=== PATIENT | female | born 1955 | race Caucasian/White ===

== ENCOUNTER 2020-01-06 09:11 | Outpatient (CLI) | payer MEDICARE, SELFPAY ==
--- NOTE | ~2020-01-06 | MM_ITS ---
EXAMINATION: MM screening leobardo BI w radha HISTORY: Screening mammogram TECHNIQUE: Craniocaudal and mediolateral oblique 3-D tomosynthesis images were obtained and synthetic 2-D images were generated. CAD analysis was submitted and interpreted. COMPARISON: 09/25/2018, 04/19/2017, 03/31/2016 bilateral digital screening mammogram examinations 05/09/2017 diagnostic left digital mammogram BREAST PARENCHYMAL COMPOSITION: The breasts are heterogeneously dense, which may obscure small masses . FINDINGS: Small bilateral breast masses are suggested. Bilateral diagnostic mammography and ultrasoun d examination are recommended. IMPRESSION: 1. Possible bilateral masses. 2. Bilateral diagnostic mammogram and breast ultrasound examination are recommended. BI-RADS Category 0: Incomplete: Needs additional imaging evaluation. Reviewed, dictated and finalized at location A. IMPRESSION: 1. Possible bilateral masses. 2. Bilateral diagnostic mammogram and breast ultrasound examination are recomme nded. BI-RADS Category 0: Incomplete: Needs additional imaging evaluation.
== END 2020-01-06 09:12 | disposition home or self-care (01) ==
LOC: ANHIMG 09:15
PROVIDERS: PCP Student in an Organized Health Care Education/Training Program; Visit Provider Student in an Organized Health Care Education/Training Program
DX: Z12.31 Encounter for screening mammogram for malignant neoplasm of breast (principal); R92.8 Other abnormal and inconclusive findings on diagnostic imaging of breast
CPT/HCPCS: 77063; 77067

== ENCOUNTER 2020-01-14 11:21 | Outpatient (CLI) | payer MEDICARE, SELFPAY ==
--- NOTE | ~2020-01-14 | MMUS_ITS ---
EXAMINATION: MM diagnostic mammo BI, US breast BI limited HISTORY: Follow-up breast asymmetries TECHNIQUE: Additional 3-D tomosynthesis images of the breasts were performed and synthetic 2-D images were generated. CAD analysis was submitted and interpreted. High resolution bilateral breast ultraso und was performed. COMPARISON: 01/06/2020 FINDINGS: MAMMOGRAPHIC FINDINGS: Breast composed of scattered areas of fibroglandular density. There is a low-density 4 mm nodule medi al aspect of the right breast on CC view. This is not confirmed on MLO or mediolateral views. There i s a 4 mm low-density mass medial aspect of the left breast posterior depth: Not well seen on MLO or m ediolateral views. ULTRASOUND: Right breast ultrasound: At 3:00 near the nipple there is a 3 mm cyst corresponding to the mammographic finding. Left breast ultrasound: At 6:00 there is a 4 mm cyst which may correspond to the mammographic finding. At 9:00, 2 cm from the nipple there is an oval hypoechoic mass without internal vascularity or posterior features measuring 12 x 6 x 3 mm, likely benign. IMPRESSION: 1. Probable benign left breast mass at 9:00, 2 cm from the nipple. 2. Recommend 6 month follow-up diagnostic left mammogram and ultrasound BI-RADS category 3, probably benign findings. Reviewed, dictated and finalized at location A. IMPRESSION: 1. Probable benign left breast mass at 9:00, 2 cm from the nipple. 2. Recommend 6 month follow-up diagnostic left mammogram and ultrasound BI-RADS category 3, probably benign findings.
== END 2020-01-14 11:22 | disposition home or self-care (01) ==
PROVIDERS: PCP Student in an Organized Health Care Education/Training Program; Visit Provider Student in an Organized Health Care Education/Training Program
DX: R92.2 Inconclusive mammogram (principal); R92.8 Other abnormal and inconclusive findings on diagnostic imaging of breast
CPT/HCPCS: 76642; 77066

== ENCOUNTER 2020-03-30 10:09 | Emergency (ER) | payer OTHER, MEDICARE, SELFPAY ==
--- NOTE | ~2020-03-30 | CT_ITS ---
EXAMINATION: CT brain wo con, CT facial bones wo con DATE: 03/30/2020 11:26 INDICATION: Fall presenting with head/facial injury and nasal pain. TECHNIQUE: 1. Computed tomography (CT) of the head was performed without intravenous contrast. Sagittal and kait nal reconstructions were obtained. The mA was adjusted according to patient size. Iterative reconstru ction technique was employed. The dose-length product was 605 mGy-cm. 2. CT of the facial bones and maxillofacial region was performed without intravenous contrast. Sagitt al and coronal reconstructions were obtained. Automated exposure control and iterative reconstruction technique were employed. The dose-length product was 410 mGy-cm. COMPARISON: None. FINDINGS: Head CT: No calvarial fracture. Acute intracranial hemorrhage, acute infarction or abnormal extra axial fluid collection. There is minimal scattered white matter hypoattenuation consistent with chronic small ves yenni ischemic disease. Ventricles are normal and symmetric. No mass/mass effect. Maxillofacial CT: Nondisplaced coronally oriented fracture involving the left and right nasal bones which is best appre ciated on the sagittal reconstructed images. Minimal overlying soft tissue swelling. No other maxillo facial fractures identified. Specifically the dawkins of the orbits and paranasal sinuses, the pterygoi d plates, zygomatic arches and mandible are intact. Normal alignment at the bilateral temporomandibul ar joints with minimal osteoarthritis. The orbits are normal. Mild mucosal thickening the posterior r ight ethmoid air cells. Mastoid air cells and middle ear cavities are clear. IMPRESSION: 1. Nondisplaced left and right nasal bone fractures. 2. No calvarial fracture or acute intracranial process. 3. Minimal scattered white matter hypoattenuation consistent with chronic small vessel ischemic disea se. Reviewed, dictated and finalized at location A. IMPRESSION: 1. Nondisplaced left and right nasal bone fractures. 2. No calvarial fracture or acute intracranial process. 3. Minimal scattered white matter hypoattenuation consistent with chronic small vessel ischemic disease.
--- NOTE | ~2020-03-30 | XR_ITS ---
EXAMINATION: XR wrist LT min 3V DATE: 03/30/2020 11:37 INDICATION: Left wrist pain post fall TECHNIQUE: Posteroanterior, ulnar deviation, oblique, and lateral views of the left wrist were obtain ed. COMPARISON: None FINDINGS: Diffuse osteopenia which mildly decreases sensitivity for nondisplaced fracture. Bone alignment is no rmal. No fracture. Polyarticular osteoarthritis, moderate severity at the triscaphe and first carpal metacarpal joints and mild at the wrist, midcarpal and several of the visualized metacarpophalangeal and interphalangeal joints. Tiny corticated loose body at the dorsal/radial aspect of the first carpo metacarpal joint. IMPRESSION: 1. No acute osseous abnormality. 2. Mild to moderate polyarticular osteoarthritis most prominent at the radial aspect of the carpus. 3. Diffuse osteopenia Reviewed, dictated and finalized at location A. IMPRESSION: 1. No acute osseous abnormality. 2. Mild to moderate polyarticular osteoarthritis most prominent at the radial a spect of the carpus. 3. Diffuse osteopenia
--- NOTE | ~2020-03-30 | XR_ITS ---
XR shoulder RT min 2V DATE: 03/30/2020 11:37 INDICATION: Right shoulder and proximal upper arm pain following a fall. TECHNIQUE: 4 views COMPARISON: None FINDINGS: No fracture or dislocation, periosteal reaction or bone destruction or abnormal soft tissue calcification is detected. Degenerative spurring and levoscoliosis of the thoracic spine. IMPRESSION: No significant abnormality of the right shoulder Reviewed, dictated and finalized at location A.
[2020-03-30 10:19] VITALS: BP 165/130; PULSE 89; RESP 18; TEMP 36.4; O2SAT 98
--- NOTE | 2020-03-30 11:09 | ED.FALL ---
HPI - Fall General Chief Complaint: Fall Stated Complaint: FALL/FACIAL INJURY Time Seen by Provider: 03/30/20 10:55 Source: patient Mode of arrival: EMS Limitations: no limitations History of Present Illness HPI Narrative: This is a 65-year-old female that presents the emergency department via EMS for a fall today at work. Reports she tripped over a mat and fell forward. Reports she hit her face on the floor. Reports a bloody nose and nasal pain. Also reports left wrist and right shoulder pain. Denies prodromal symptoms, loss of consciousness, vision changes, vomiting, numbness or weakness. Related Data Home Medications Medication Instructions Recorded Confirmed calcium carbonate [Calcium 600] 600 03/30/20 citalopram 20 mg PO DAILY 03/30/20 03/30/20 lisinopril 10 mg PO DAILY 03/30/20 03/30/20 vit D3-vit [id number] 5,000 03/30/20 Allergies Allergy/AdvReac Type Severity Reaction Status Date / Time meperidine Allergy Unknown Unknown Verified 03/30/20 10:27 morphine Allergy Unknown Unknown Verified 03/30/20 10:27 Review of Systems Review of Systems: Narrative: CONSTITUTIONAL: Denies fever EYES: Denies visual changes GASTROINTESTINAL: Denies vomiting MUSCULOSKELETAL: Reports joint pain, and myalgia. NEUROLOGIC: Denies headache, numbness, or weakness. All systems reviewed & are unremarkable except as noted in HPI and below PMFSH Past Medical History Medical History (Updated 03/30/20 @ 12:00 by Britany Schaefer PA-C) History of depression History of diabetes mellitus History of hypertension Family History Family History (Updated 01/16/18 @ 11:37 by DOCTOR UNKNOWN) Grandparent Carcinoma of colon Sibling Family history of malignant neoplasm of breast in first degree relative Mother Family history of malignant neoplasm Social History Social History Smoking status: Never smoker Alcohol intake: never Gender identity (if verbalized by the patient): Female Exam Narrative: Exam Narrative: GENERAL: Well-appearing, well-nourished, and in no acute distress. HEAD: Normocephalic, atraumatic. EYES: PERRLA and EOMI. ENT: Nares no rhinorrhea or active epistaxis. Dried blood in the left nares. Mucous membranes moist. Oropharynx without tonsillar hypertrophy exudate or other lesions. Bilateral TMs pearly dean non-bulging NECK: Supple. No adenopathy or masses. No midline cervical spine tenderness CHEST: Clear to auscultation. No respiratory distress. No wheezes rales or rhonchi HEART: Regular rate and rhythm. No murmur heard. Normal peripheral pulses. BACK: No midline thoracic or lumbar spine tenderness EXTREMITIES: Normal range of motion. No edema or obvious deformity. Normal sensation SKIN: Warm, dry, no rash. NEURO: No focal deficits. Alert and oriented x3. Cranial nerves II through XII grossly intact PSYCH: Normal mood and affect Course Vital Signs Vital signs: Vital Signs Temperature 97.6 F 03/30/20 10:19 Pulse Rate 89 03/30/20 10:19 Respiratory Rate 18 03/30/20 10:19 Blood Pressure 165/130 H 03/30/20 10:19 Pulse Oximetry 98 03/30/20 10:19 Temperature 97.6 F 03/30/20 10:19 Pulse Rate 89 03/30/20 10:19 Respiratory Rate 18 03/30/20 10:19 Blood Pressure 165/130 H 03/30/20 10:19 Pulse Oximetry 98 03/30/20 10:19 MDM - Fall MDM Narrative Medical decision making narrative: Patient presents to the emergency department after a fall today with nasal pain, left wrist, and right shoulder pain. Patient is neurologically intact. CT scan of the brain is without acute findings. CT of the facial bones shows nondisplaced left and right nasal bone fractures. Right shoulder x-rays without acute findings. Left wrist x-rays without acute findings. Patient updated on case findings. Was instructed on care of nasal bone fracture. Will be given ENT for follow-up. Patient declined prescription for pain medication. Patient is stable and felt appropriate further outpa
== END 2020-03-30 12:47 | disposition home or self-care (01) ==
PROVIDERS: Emergency Provider Emergency Medicine; PCP Student in an Organized Health Care Education/Training Program
DX: S02.2XXA Fracture of nasal bones, initial encounter for closed fracture (principal); S09.90XA Unspecified injury of head, initial encounter; F32.9 Major depressive disorder, single episode, unspecified; E11.9 Type 2 diabetes mellitus without complications; I10 Essential (primary) hypertension; W01.0XXA Fall on same level from slipping, tripping and stumbling without subsequent striking against object, initial encounter
CPT/HCPCS: 70450; 70486; 73030; 73110; 99284

== ENCOUNTER → 2020-04-21 10:47 | Outpatient (CLI) | payer MEDICARE, SELFPAY ==
--- NOTE | ~2020-04-21 | MR_ITS ---
EXAMINATION: MR brain/brain stem wo/w con EXAM DATE: 04/21/2020 11:44 INDICATION: Fall, initial encounter. History of falls. Hit head one month ago. Generalized headaches. TECHNIQUE: Magnetic resonance imaging (MRI) of the brain/brain stem obtained without contrast. Sagit sharmaine T1, axial diffusion, gradient echo (T2*), T1, T2, FLAIR sequences obtained. Patient was then inj ected with 18 cc intravenous Multihance contrast. Axial and coronal postcontrast T1 weighted sequence s obtained. Comparison is made to prior examination from 03/30/2020. FINDINGS: There are no areas of restricted diffusion to suggest acute infarction. There is no acute hemorrhage seen on the T2*, a hemosiderin sensitive sequence. No intraparenchymal brain mass. The ve ntricles are normal in size. There are no extra-axial collections. Flow voids are seen in the cereb ral arteries on the T2-weighted sequences consistent with their expected patency. The orbits are unr emarkable. Soft tissue is unremarkable. There are no areas of abnormal enhancement on the post con trast images. IMPRESSION: 1. Unremarkable brain MRI examination. Reviewed, dictated and finalized at location A.
[2020-04-21 11:29] LABS: Estimated Glomerular Filt Rate > 60
== END ==
PROVIDERS: Visit Provider Student in an Organized Health Care Education/Training Program
DX: R47.81 Slurred speech (principal)
CPT/HCPCS: 36415; 70553; A9577

== ENCOUNTER → 2020-08-11 08:47 | Outpatient (CLI) | payer MEDICARE, SELFPAY ==
--- NOTE | ~2020-08-11 | MMUS_ITS ---
EXAMINATION: MM diagnostic leobardo LT w radha, US breast LT complete HISTORY: Six-month follow-up of probable benign left breast mass at 9:00 2 cm from nipple TECHNIQUE: ML, MLO and cc full field and spot 3-D tomosynthesis images of the left breast were perfor med and synthetic 2-D images were generated. CAD analysis was submitted and interpreted. High resolut ion complete left breast ultrasound was performed. COMPARISON: 01/14/2020 bilateral diagnostic digital mammogram and bilateral Limited breast ultrasound 01/06/2020 bilateral digital screening mammogram BREAST PARENCHYMAL COMPOSITION: The breasts are heterogeneously dense, which may obscure small masses . FINDINGS: MAMMOGRAPHIC FINDINGS: No reproducible suspicious mass or architectural distortion is evident. No suspicious calcifications. No skin thickening. ULTRASOUND: 3:00 0.5 cm from nipple: 4 x 5 mm simple cyst with through transmission posterior enhancement 9:00: Parallel circumscribed biconvex mixed hypoechoic and sonolucent lesion measuring 6 x 4 x 11 mm, without internal vascularity or suspicious shadowing, relatively stable in size since 01/14/2020 cons istent with benign process. IMPRESSION: 1. No mammographic evidence of malignancy 2. Routine mammographic screening is recommended. BI-RADS Category 2: Benign finding(s). Reviewed, dictated and finalized at location A. UME DESIGN TEACHER IMPRESSION: 1. No mammographic evidence of malignancy 2. Routine mammographic screening is recommended. BI-RADS Category 2: Benign finding(s).
== END ==
PROVIDERS: PCP Student in an Organized Health Care Education/Training Program; Visit Provider Student in an Organized Health Care Education/Training Program
DX: R92.8 Other abnormal and inconclusive findings on diagnostic imaging of breast (principal)
CPT/HCPCS: 76641; 77061; 77065; G0279

== ENCOUNTER 2025-06-25 02:29 | Day surgery (SDC) | payer OTHER, SELFPAY ==
[2025-06-17 11:43] VITALS: BMI 35.8
--- OUTSIDE RECORDS SUMMARY | 2025-06-25 02:32 | XMS_ITS | Clinical Summary ---
Author Organization [facility] Address [address] [place] [address] Care Team Providers Care Scutcher Tender Name Role Phone Fallon Byers MD Primary Care Provider [phone] Source Comments [facility] Affiliates and Associated Physician Practices is amultiple site organization consisting of ambulatory clinics and hospital sitesin [place], [place], [place] and [place]. This disclosure is being madepursuant to the Care Everywhere program and may not contain all information available regarding this patient. Last updated 18.[facility] Family History Medical History Relation Name Comments Cancer - Breast Paternal Aunt Cancer - Breast Sister Cancer - Ovarian Neg Hx Relation Name Status Comments Paternal Aunt Sister Social History Tobacco Use Types Packs/Day Years Used Date Smoking Tobacco: Never Assessed Comments No Sex and Gender Information Value Date Recorded Sex Assigned at Not on file Legal Sex Female 4:16 PM INFORMATION SYSTEMS ADMINISTRATOR Gender Identity Not on file Sexual Orientation Not on file Plan of Treatment Health Maintenance Due Date Last Done Comments COLOGUARD (AGES 45-75) - COL ON CA SCREENING 1953 COLON MONITORING 1953 COLONOSCOPY - COLON CA SCREENING 1953 CT COLONOGRAPHY - COLON CA SCREENING 1953 Colorectal Cancer Screening 1953 FIT - COLON CA SCREENING 1953 FLEX SIG - COLON CA SCREENING 1953 LIPID TESTING 1953 HEPATITIS C SCREENING 03/20/1971 DTAP/TDAP/TD VACCINES (1 - Tdap) 1972 PNEUMOCOCCAL VACCINE 50+ (1 of 1 - PCV) 2003 ZOSTER VACCINE (1 of 2) 2003 MAMMOGRAM 10/28/2015 10/28/2013 DEPRESSION SCREENING 09/18/2024 COVID-19 VACCINE (2023-2 5 season) 2025 INFLUENZA VACCINE (#1) 2025 Respiratory Syncytial Virus (RSV) Vaccine Pt: or over 60 yrs (1 - 1-dose 75+ series) 2028 BONE DENSITY TESTING Completed 10/28/2013 HEPATITIS B VACCINE Aged Out No longe r eligible based on patient's age to complete this topic HIB VACCINE Aged Out No longer eligi ble based on patient's age to complete this topic HPV VACCINE Aged Out No longer eligi ble based on patient's age to complete this topic MENINGOCOCCAL (Group B) VACC INE SHARED DECISION-MAKING Aged Out No longer eligibl e based on patient's age to complete this topic MENINGOCOCCAL GROUPS A/C/Y/W VACCINE Aged Out No longer eligible b ased on patient's age to complete this topic Procedures Procedure Name Priority Date/Time Associated Diagnosis Comments DEXA BONE DENSITY 2 SITES Routine 10/28/2013 10:01 AM INFORMATION SYSTEMS ADMINISTRATOR Disorder Of Bone And Cartilage, Unspecified MAMMO BILAT SCREENING Routine 10/28/2013 9:17 AM INFORMATION SYSTEMS ADMINISTRATOR Other screening mammogram from Last 3 Months or Most Recently Relevant to Health Maintenance Results * DEXA BONE DENSITY 05519 (10/28/2013 10:01 AM INFORMATION SYSTEMS ADMINISTRATOR) Anatomical Region Laterality Modality Radiographic Sharonda ging 10/28/2013 11:0 1 AM INFORMATION SYSTEMS ADMINISTRATOR Impressions 10/28/2013 11:46 AM INFORMATION SYSTEMS ADMINISTRATOR 1. Lowest T-Score in hip joints. 2. Based on WHO criteria, no osteopenia or osteoporosis. 3. Low risk for fracture. 4. Followup in 2 to 3 years on same machine if possible. 5. Interval improvement in bone mineral density since prior examination. Narrative 10/28/2013 11:46 AM INFORMATION SYSTEMS ADMINISTRATOR BONE MINERAL DENSITY: (10/28/2013) CLINICAL HISTORY: Osteoporosis. COMPARISON: 10/22/2012. Hip joints: BMD 0.930 gm/sq cm. T-Score -0.6. Z-Score -0.1. Lumbar spine: BMD 1.324 gm/sq cm. T-Score 1. Z-Score 1.6. Procedure Note Harjinder Bautista MD - 10/28/2013 BONE MINERAL DENSITY: (10/28/2013) CLINICAL HISTORY: Osteoporosis. COMPARISON: 10/22/2012. Hip joints: BMD 0.930 gm/sq cm. T-Score -0.6. Z-Score -0.1. Lumbar spine: BMD 1.324 gm/sq cm. T-Score 1. Z-Score 1.6. IMPRESSION 1. Lowest T-Score in hip joints. 2. Based on WHO criteria, no osteopenia or osteoporosis. 3. Low risk for fracture. 4. Followup in 2 to 3 years on same machine if possible. 5. Interval improvement in bone mineral density since prior examination. Tanmay STATON DEXA ORDERABLES Final Result * EZEKIEL SCREENING DIGITAL BILATERAL (10/28/2013 9:17 AM INFORMATION SYSTEMS ADMINISTRATOR) Anatomical Region Laterality Modality Breast Bilateral Mammography 10/28/2013 9:53 AM INFORMATION SYSTEMS ADMINISTRATOR Impressions 10/28/2013 1:15 PM INFORMATION SYSTEMS ADMINISTRATOR No mammographic evidence of malignancy. Recommend annual mammogram. BI-RADS category 2 benign. A) A negative report should not delay a biopsy if a dominant or clinically suspicious mass is present. B) Adenosis and dense breasts may obscure an underlying neoplasm. C) Study interpreted with computer aided detection. MQSA BI-RADS Categories: Category 0 - needs additional imaging evaluation. Category 1 - negative. Category 2 - benign findings. Category 3 - probably benign findings, but short interval follow-up is recommended. Category 4 - suspicious abnormality and biopsy should be considered though the lesion may well be benign. Category 5 - highly suggestive of malignancy and appropriate action should be taken. Category 6 - known biopsy proven cancer. Narrative 10/28/2013 1:15 PM INFORMATION SYSTEMS ADMINISTRATOR BILATERAL DIGITAL SCREENING MAMMOGRAM WITH CAD 10/28/2013 COMPARISON: 07/05/2012, 05/05/2011, 04/14/2010. DISCUSSION: Bilateral digital screening mammogram with CAD. Standard mammographic views. Scattered fibroglandular tissue. Mole marked on the right breast. No mammographically suspicious mass, microcalcification, or architectural distortion. No abnormality marked by CAD. Procedure Note Angel Luis Bucio MD - 10/28/2013 BILATERAL DIGITAL SCREENING MAMMOGRAM WITH CAD 10/28/2013 COMPARISON: 07/05/2012, 05/05/2011, 04/14/2010. DISCUSSION: Bilateral digital screening mammogram with CAD. Standard mammographic views. Scattered fibroglandular tissue. Mole marked on the right breast. No mammographically suspicious mass, microcalcification, or architectural distortion. No abnormality marked by CAD. IMPRESSION No mammographic evidence of malignancy. Recommend annual mammogram. BI-RADS category 2 benign. A) A negative report should not delay a biopsy if a dominant or clinically suspicious mass is present. B) Adenosis and dense breasts may obscure an underlying neoplasm. C) Study interpreted with computer aided detection. MQSA BI-RADS Categories: Category 0 - needs additional imaging evaluation. Category 1 - negative. Category 2 - benign findings. Category 3 - probably benign findings, but short interval follow-up is recommended. Category 4 - suspicious abnormality and biopsy should be considered though the lesion may well be benign. Category 5 - highly suggestive of malignancy and appropriate action should be taken. Category 6 - known biopsy proven cancer. Tanmay STATON MAMMO ORDERABLES Final Result from Last 3 Months or Most Recently Relevant to Health Maintenance Insurance Care Teams Scutcher Tender Relationship Specialty Start Date End Date Fallon Byers MD [address] [place] [id number] PCP - General Nephrology 10/23/13
--- OUTSIDE RECORDS SUMMARY | 2025-06-25 02:34 | XMS_ITS | Data Portability ---
Author Organization [facility] CHARANPatel Address [address] [place] [address] Care Team Providers Care Executive Creative Director Name Role Phone KELLE ROBERT Guest Services Assistant Unavailable Assessment No assessment recorded. Plan of Treatment Reminders Order Date Submit Date Provider Last Modified By Organization Details Last Modified Time Details Appointments None recorded. Lab urinalysis, dipstick 2015 016 In-Office Order, Internal Use Only DO Not Attach Compendium DO Not Attach Compendium, Do Not Delete/merge, [id number] 6 04:33:24 urinalysis, dipstick 2015 016 In-Office Order, Internal Use Only DO Not Attach Compendium DO Not Attach Compendium, Do Not Delete/merge, [id number] 6 04:29:48 pap, IG + HPV, cervical 2015 016 [facility], [address], [facility] [address], [place], [address], 6 04:30:30 bacterial vaginosis + vaginitis panel, vaginal 2015 016 [facility], [address], [facility] [address], [place], [address], 6 04:30:17 Referral urogynecolo gist referral 2015 016 [facility], [address] [place] [address], [address], 6 04:29:55 Procedures None recorded. Surgeries None recorded. Imaging MAMMO, screening, bilateral 2015 016 [facility] ([facility]), [address], [place], [address], 6 04:33:27 Medication Orders None recorded. Patient TargetsNo targets recorded. Patient Instructions Encounter Date Encounter Id Patient Instructions Last Modified By Organization Details Last Modified Time 07/13/2016 [id number] cystocele: care instructions Not available 09/03/2016 04:30:14 Vaginal Vault Prolapse: Care Instructions Not available 09/03/2016 04:30:12 08/30/2016 [id number] mammogram: about this test [facility] Not available 08/30/2016 12:31:02 Reason for Referral Urogynecologist Referral for Cystocele Referring Physician: Jaelyn Mehta, DEPUTY MANAGER, Encounter Date: 07/13/2016 Results Created Date Observation Date Name Description Value Unit Range Abnormal Flag Note LastModifiedBy Organization Detail LastModifiedTime 08/30/20 16 08/30/2016 urina lysis , dipst ick Leukocytes Negati ve Not Available In-Office Order Internal Use Only DO Not Attach Compendium DO Not Attach Compendium, Do Not Delete/merge, [id number] 08/30/2016 12:04:53 08/30/20 16 08/30/2016 urina lysis , dipst ick Nitrite negati ve Not Available In-Office Order Internal Use Only DO Not Attach Compendium DO Not Attach Compendium, Do Not Delete/merge, [id number] 08/30/2016 12:04:53 08/30/20 16 08/30/2016 urina lysis , dipst ick Urobilinogen .2 Not Available In-Of fice Order Internal Use Only DO Not Attach Compendium DO Not Attach Compendium, Do Not Delete/merge, [id number] 08/30/2016 12:04:53 08/30/20 16 08/30/2016 urina lysis , dipst ick Protein Negati ve Not Available In-Office Order Internal Use Only DO Not Attach Compendium DO Not Attach Compendium, Do Not Delete/merge, [id number] 08/30/2016 12:04:53 08/30/20 16 08/30/2016 urina lysis , dipst ick pH 6.0 Not Available In-Office Order Internal Use Only DO Not Attach Compendium DO Not Attach Compendium, Do Not Delete/merge, [facility] 08/30/2016 12:04:53 08/30/20 16 08/30/2016 urina lysis , dipst ick Blood Negati ve Not Available In-Office Order Internal Use Only DO Not Attach Compendium DO Not Attach Compendium, Do Not Delete/merge, [facility] 08/30/2016 12:04:53 08/30/20 16 08/30/2016 urina lysis , dipst ick Specific Morris 1.020 Not Available In-Off ice Order Internal Use Only DO Not Attach Compendium DO Not Attach Compendium, Do Not Delete/merge, [facility] 08/30/2016 12:04:53 08/30/20 16 08/30/2016 urina lysis , dipst ick Ketone Negati ve Not Available In-Office Order Internal Use Only DO Not Attach Compendium DO Not Attach Compendium, Do Not Delete/merge, [id number] 08/30/2016 12:04:53 08/30/20 16 08/30/2016 urina lysis , dipst ick Bilirubin Negati ve Not Available In-Office Order Internal Use Only DO Not Attach Compendium DO Not Attach Compendium, Do Not Delete/merge, [facility] 08/30/2016 12:04:53 08/30/20 16 08/30/2016 urina lysis , dipst ick Glucose Negati ve Not Available In-Office Order Internal Use Only DO Not Attach Compendium DO Not Attach Compendium, Do Not Delete/merge, [id number] 08/30/2016 12:04:53 07/13/20 16 07/13/2016 urina lysis , dipst ick Leukocytes Negati ve Not Available In-Office Order Internal Use Only DO Not Attach Compendium DO Not Attach Compendium, Do Not Delete/merge, [id number] 07/13/2016 13:13:57 07/13/20 16 07/13/2016 urina lysis , dipst ick Nitrite negati ve Not Available In-Office Order Internal Use Only DO Not Attach Compendium DO Not Attach Compendium, Do Not Delete/merge, 07/13/2016 13:13:57 07/13/20 16 07/13/2016 urina lysis , dipst ick Urobilinogen .2 Not Available In-Of fice Order Internal Use Only DO Not Attach Compendium DO Not Attach Compendium, Do Not Delete/merge, 07/13/2016 13:13:57 07/13/20 16 07/13/2016 urina lysis , dipst ick Protein Negati ve Not Available In-Office Order Internal Use Only DO Not Attach Compendium DO Not Attach Compendium, Do Not Delete/merge, 07/13/2016 13:13:57 07/13/20 16 07/13/2016 urina lysis , dipst ick pH 7.0 Not Available In-Office Order Internal Use Only DO Not Attach Compendium DO Not Attach Compendium, Do Not Delete/merge, 07/13/2016 13:13:57 07/13/20 16 07/13/2016 urina lysis , dipst ick Blood Small Not Available In-Office Order Internal Use Only DO Not Attach Compendium DO Not Attach Compendium, Do Not Delete/merge, 07/13/2016 13:13:57 07/13/20 16 07/13/2016 urina lysis , dipst ick Specific Morris 1.010 Not Available In-Off ice Order Internal Use Only DO Not Attach Compendium DO Not Attach Compendium, Do Not Delete/merge, 07/13/2016 13:13:57 07/13/20 16 07/13/2016 urina lysis , dipst ick Ketone Negati ve Not Available In-Office Order Internal Use Only DO Not Attach Compendium DO Not Attach Compendium, Do Not Delete/merge, 07/13/2016 13:13:57 07/13/20 16 07/13/2016 urina lysis , dipst ick Bilirubin Negati ve Not Available In-Office Order Internal Use Only DO Not Attach Compendium DO Not Attach Compendium, Do Not Delete/merge, 07/13/2016 13:13:57 07/13/20 16 07/13/2016 urina lysis , dipst ick Glucose Negati ve Not Available In-Office Order Internal Use Only DO Not Attach Compendium DO Not Attach Compendium, Do Not Delete/merge, [id number] 07/13/2016 13:13:57 07/13/20 16 07/16/2016 bacte rial vagin osis + vagin itis panel , vagin al atopobium vaginae LOW - 0 score Not Available [facility] ([facility]) [address] [place], [address], 07/17/2016 09:08:16 07/13/20 16 07/16/2016 bacte rial vagin osis + vagin itis panel , vagin al bvab 2 LOW - 0 score Not Available [facility] ([facility]) [address] [place], [address], 07/17/2016 09:08:16 07/13/20 16 07/16/2016 bacte rial vagin osis + vagin itis panel , vagin al megasphaera 1 LOW - 0 score CALCU LATE TOTAL SCORE BY FUNMI Palafox THE 3 INDIV IDUAL BACTE RIAL VAGIN OSIS (BV) MARKE R SCORE S TOGET HER. TOTAL SCORE IS INTER PRETE D FOLLO WS: TOTAL SCORE 0-1: INDIC ATES THE ABSEN CE OF BV. TOTAL SCORE 2: INDET ERMIN ATE FOR BV. ADDIT IONAL CLINI ADOLFO DATA SHOUL D BE EVALU ATED TO ESTAB ZANDER A DIAGN OSIS. TOTAL SCORE 3-6: INDIC ATES THE PRESE NCE OF BV. THIS TEST WAS DEVEL OPED AND ITS PERFO RMANC E KIM CTERI STICS DETER MINED BY [facility]. IT HAS NOT BEEN CLEAR ED OR APPRO MAO BY THE FOOD AND DRUG ADMIN ISTRA TION. THE FDA HAS DETER MINED THAT SUCH CLEAR ANCE OR APPRO PROSPER IS NOT NECES ARIEL. Not Available [facility] ([facility]) [address] [place], [address], 07/17/2016 09:08:16 07/13/20 16 07/16/2016 bacte rial vagin osis + vagin itis panel , vagin al davonte albicans, JUS NEGATI VE negati ve Not Available [facility] ([facility]) [address] [place], [address], 07/17/2016 09:08:16 07/13/20 16 07/16/2016 bacte rial vagin osis + vagin itis panel , vagin al davonte glabrata, JUS NEGATI VE negati ve THIS TEST WAS DEVEL OPED AND ITS PERFO RMANC E KIM CTERI STICS DETER MINED BY [facility]. IT HAS NOT BEEN CLEAR ED OR APPRO MAO BY THE FOOD AND DRUG ADMIN ISTRA TION. THE FDA HAS DETER MINED THAT SUCH CLEAR ANCE OR APPRO PROSPER IS NOT NECES ARIEL. Not Available [facility] ([facility]) [address] [facility], [place], [address], 07/17/2016 09:08:16 07/13/20 16 07/17/2016 bacte rial vagin osis + vagin itis panel , vagin al trich vag by JUS NEGATI VE negati ve Not Available [facility] ([facility]) [address] [place], [address], 07/17/2016 09:08:16 07/13/20 16 07/17/2016 bacte rial vagin osis + vagin itis panel , vagin al chlamydia trachomatis, JUS NEGATI VE negati ve Not Available [facility] ([facility]) [address] [place], [address], 07/17/2016 09:08:16 07/13/20 16 07/17/2016 bacte rial vagin osis + vagin itis panel , vagin al neisseria gonorrhoeae, JUS NEGATI VE negati ve Not Available [facility] ([facility]) [address] [place], [address], 07/17/2016 09:08:16 07/13/20 16 07/15/2016 pap, IG + HPV, cervi adolfo HPV aptima NEGATI VE negati ve THIS TEST DETEC TS FOURT EEN HIGH- RISK HPV TYPES (16/1 8/31/ 33/35 /39/4 5/ 51/52 /56/5 8/59/ 66/68 ) WITHO UT DIFFE RENTI ATION . Not Available [facility] ([facility]) [address] [facility], [place], [address], 07/18/2016 09:08:48 07/13/20 16 07/18/2016 pap, IG + HPV, cervi adolfo diagnosis: COMMEN T UNSAT ISFAC TORY FOR EVALU ATION . Not Available [facility] ([facility]) [address] [facility], [place], [address], 07/18/2016 09:08:48 07/13/2007/18/2016 pap, IG + HPV, cervi adolfo recommendati on: COMMEN T SUGGE ST FOLLO W UP CLINI JOZEF APPRO PRIAT E. Not Available [facility] ([facility]) [address] [facility], [place], [address], 07/18/2016 09:08:48 07/13/20 16 07/18/2016 pap, IG + HPV, cervi adolfo specimen adequacy: COMMEN T SPECI MEN PROCE SSED AND EXAMI REBA BUT UNSAT ISFAC TORY FOR EVALU ATION OF EPITH ELIAL ABNOR MALIT Y BECAU SE OF INSUF FICIE NT CELLU LARIT Y. Not Available [facility] ([facility]) [address] [facility], [place], [address], 07/18/2016 09:08:48 07/13/2007/18/2016 pap, IG + HPV, cervi adolfo clinician provided ICD10: JULIETA Solorio N81.8 9 Not Available [facility] ([facility]) [address] [facility], [place], [address], 07/18/2016 09:08:48 07/13/20 16 07/18/2016 pap, IG + HPV, cervi adolfo performed by: JULIETA DASILVA, CYTOT ECHNO LOGIS T (ASCP ) Not Available [facility] ([facility]) [address] [facility], [place], [address], 07/18/2016 09:08:48 07/13/20 16 07/18/2016 pap, IG + HPV, cervi adolfo QC reviewed by: JULIETA PASCUAL , TAB VISOR Y CYTOT ECHNO LOGIS T (ASCP ) Not Available [facility] ([facility]) [address] [place], [address], 07/18/2016 09:08:48 07/13/20 16 07/18/2016 pap, IG + HPV, cervi adolfo . . Not Available [facility] ([facility]) [address] [facility], [place], [address], 07/18/2016 09:08:48 07/13/2007/18/2016 pap, IG + HPV, cervi adolfo note: JULIETA Solorio THE PAP SMEAR IS A SCREE RUBY TEST DESIG REBA TO AID IN THE DETEC TION OF LEONID LIGNA NT AND MALIG NANT CONDI TIONS OF THE UTERI NE CERVI X. IT IS NOT A DIAGN OSTIC PROCE DURE AND SHOUL D NOT BE USED THE SOLE MEANS OF DETEC TING CERVI ADOLFO CANCE R. BOTH FALSE -POSI TIVE AND FALSE -NEGA TIVE REPOR TS DO OCCUR . Not Available [facility] ([facility]) [address] [facility], [place], [address], 07/18/2016 09:08:48 07/13/2007/18/2016 pap, IG + HPV, cervi adolfo test methodology: TNP THE THIN PREP( R) IMAGE R WAS UNABL E TO READ THIS SPECI MEN. THERE FORE A MANUA L REVIE W WAS PERFO RMED. Not Available [facility] ([facility]) [address] [place], [address], 07/18/2016 09:08:48 Result Notes None recorded. Procedures Surgical History Date Name Laterality Status Provider Name and Address Organization Details Recorded Time 07/15/20 16 Date of Last Pap Smear completed Gail Valeriano TOMAS [facility] 08/30/2016 12:01:42 05/19/20 16 Most Recent Mammogram completed Gogo Mendez MA [facility] 07/13/2016 13:10:09 09/18/19 15 Colposcopy completed Gogo Mendez MA [facility] 07/13/2016 13:10:22 Hysterectomy completed Gogo Mendez MA [facility] 07/13/2016 12:35:28 Tubal Ligation completed Gogo Mendez MA [facility] 07/13/2016 12:35:39 Tonsillectomy completed Gogo Mendez MA [facility] 07/13/2016 12:35:47 Imaging Results None recorded. Procedure Notes None recorded. Medical Equipment None Reported. Allergies Allergen ID Allergen Name Allergen Category Reaction Reaction Severity Criticality Documentation Date Start Date Code Code System Note Provider Name and Address Organization Details Recorded Time 11167 Demerol medicatio n Not available Not available Not available 07/13/2016 86248 1 RxNorm Gogo Mendez MA rina [facility] 6 13:07:33 Medications Name Sig Start Date Stop Date Status Note LastModified by Organization Details LastModified Time metformin 500 mg tablet active Not Available Not Available No t Available citalopram 40 mg tablet active Not Available Not Available No t Available ibuprofen 800 mg tablet active Not Available Not Available No t Available penicillin V potassium 500 mg tablet active Not Available Not Available No t Available acetaminophen 300 mg-codeine 30 mg tablet active Not Available Not Available Not Available simvastatin 40 mg tablet active Not Available Not Available No t Available alprazolam 0.25 mg tablet active Not Available Not Available No t Available citalopram 20 mg tablet active Not Available Not Available No t Available lisinopril 10 mg tablet active Not Available Not Available No t Available Prevnar 13 (PF) 0.5 mL intramuscular syringe active Not Available Not Available Not Available Afluria (PF) 45 mcg(15 mcg x 3)/0.5 mL intramuscular syringe active Not Available Not Available Not Available Vitals Date Recorded Body height Body weight Body mass index (BMI) Systolic And Diastolic Provider Name and Address Organization Details Last Updated DateTime 07/13/2016 160.02 cm 24004.66 g 35.8 kg/m2 122/82 mm[Hg] Gogo Mendez MA [facility] 07/13/2016 13:12:44 Date Recorded Body weight Body mass index (BMI) Systolic And Diastolic Provider Name and Address Organization Details Last Updated DateTime 08/30/2016 04874.47 g 35.4 kg/m2 134/88 mm[Hg] Gail TOMAS Bal [facility] 08/30/2016 12:03:19 Date Recorded Body height Provider Name an d Address Organization Details Last Updated DateTime 08/30/2016 160.02 cm Fawn JoinerTOMAS [facility] 08/30/2016 11:29:49 Social History Question Answer Notes LastModified by Organizat ion Details LastModified Time Tobacco Smoking Status Never Smoker Gogo Mendez MA null, [facility] 07/13/2016 12:34:18 Do You Have An Advance Directive? No Information not available 07/13/2016 Is Blood Transfusion Acceptable In An Emergency? Yes Information not available 07/13/2016 What Is Your Level Of Caffeine Consumption? Occasional Information not available 07/13/2016 How Much Tobacco Do You Chew? None Information not available 07/13/2016 What Type Of Diet Are You Following? REGULAR Information not available 07/13/2016 Which Illicit Or Recreational Drugs Have You Used? None Information not available 07/13/2016 Education 12 Information no t available 07/13/2016 How Many Children Do You Have? 4 Information not available 07/13/2016 Performs Monthly Self-breast Exam? Yes Information no t available 07/13/2016 Do You Use Protection During Sex? No Information not available 07/13/2016 What Is Your Relationship Status? Single Information not available 07/13/2016 Seat Belts Used Routinely Yes Information not available 07/13/2016 Are You Sexually Active? No Information not available 07/13/2016 At What Age Did You Start Smoking Tobacco? 0 Information not available 07/13/2016 How Much Tobacco Do You Smoke? No Information not available 07/13/2016 General Stress Level Low Information not available 07/13/2016 Do You Use Sunscreen Routinely? No Information not available 07/13/2016 How Many Years Have You Smoked Tobacco? 0 Information not available 07/13/2016 Sex: Unknown Functional Status Question Answer Note LastModified by Organizat ion Details LastModified Time What is your level of alcohol consumption? None Information not available 07/13/2016 Are you currently employed? 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 Occasional Information not available 07/13/2016 Mental Status None recorded. Family History Relationship Description Onset Age of this Age Resolved Age Notes LastModified by Organization Details LastModified Time Sister Malignant neoplasm of breast [email or web address] Not available 2015 13:05:15 Medical History Condition Response Other N High Blood Pressure Y Breast Cancer N Thyroid Problems N Kidney or Bladder Problems N Lung Disease N Depression Y Blood Clots N GI Problems Y Acne N Breast Problem N Eating Disorder N Anemia N Anesthesia Complications N Ovarian Cancer N Diabetes N Anxiety Disorder Y Muscle, Joint, or Bone Problems N Blood Transfusions N Seizures/Epilepsy N Polyps N Infertility N Acid Reflux (GERD) N Cancer N Abuse/Domestic Violence N Asthma N Endometriosis N High Cholesterol Y Hepatitis N Liver Disease N Pre-Eclampsia N Osteoporosis N Gynecological History Statement/Question Response Abnormal Pap Y On BCP's at Conception? N STIs/STDs N HPV Vaccine N Most Recent Mammogram 05/19/2016 Current Control Method Hysterectom y Age at First Child 16 Sexually Active? N Menses Monthly N Date of Last Pap Smear 07/15/2016 Sexual Problems? N LMP Obstetrics History GPAL:G 5 P 4 0 1 4 Type Value Multiple Births 0 Full Term 4 Induced 0 Spontaneous 0 Premature 0 Living 4 Ectopics 1 Total 5 Past Encounters Encounter ID Performer Location Encounter Start Date Encounter Closed Date Diagnosis/Indication Diagnosis SNOMED-CT Code Diagnosis ICD10 Code Diagnosis IMO Codes Diagnosis Note [id number] MD Brandi Grimm [facility] (DEPUTY MANAGER) [address] [place] [address] 07/13/2016 11:58:19 07/14/2016 11:01:25 Cystocele 114797814 N81.10 Vaginal va ult prolapse 072083400 N81.89 [id number] MD Brandi Kramer [facility] (DEPUTY MANAGER) [address] [place] [address] 08/30/2016 10:56:02 09/02/2016 13:40:53 Screening mammography 40099100 Z12.31 Screening for malignant neoplasm of breast 487532213 Z12.31 History of hysterectomy 304706562 Z90.711 Health Concerns Section Related Observation LastModified by Organization Detai ls LastModified Time None Recorded Concern Status LastModified by Organization Details LastModified Time None Recorded Advance Directives Directive N: Payers Insurance Date Sequence Insurance Name Policy Number Policy Trevizo Covered Member ID Trevizo Member ID Guarantor Name 08/27/2016 1 [facility] [id number] Gill Nava [id number] Gill Nava Notes Date Note Type Note Provider Name and Address Organization Details Recorded Time 6 text/html She say she had prolapse of her bladder and uterus since 2007 for which she got hysterectomy in 2009. she say she still has cervix. She say since then her symptoms improved till last month she started feeling pressure in the vagina that she could not walk. She went to urologist in 05/2016. Urologist tried to put pessary at that time with unsuccess. She was offered surgery at that time and because of financial situation she did not get it done. Denies any urinary incontinence, urgency. She still c/o pressure in vagina. Denies any vaginal discharge or pelvic pain. Also c/o bump over right side of vulva. Jaelyn Mehta MD Attn: Accounting[address] [place], [address], [facility] 07/14/2016 14:49:38 6 text/html Annual Watermaster Post-MenopausalReported by PatientGenitourinary symptomsFor menopausal symptoms, patient reportsno menopausal symptomsandnormal vaginal lubrication. For vaginal bleeding, patient reportshistory of menopause having occurredandno history of post menopausal bleeding. For urinary symptoms, patient reportsno hematuria,no incontinence,no nocturia, andno urinary frequency. For vulva, patient reportsno genital lesionandno vulvar atrophy. For vagina, patient reportsnormal vaginal dischargeandno vaginal atrophy.Breast symptomsFor breast, patient reportsno breast lump,no nipple discharge, andno breast pain.Psychological symptomsFor sexual complaints, patient reportsno sexual complaints. For psychological symptoms, patient reportsno depressionandno anxiety.ROS as noted in the HPI 61 yo female presents for annual WWE, however, patient had hysterectomy so she does not need further pap smears. We provided patient with education and CBE. Kelle CaMengalfredito flynn, [place] - [place] 08/30/2016 19:00:41 OBGyn Episode Ob Episode Information Episode Created Date Number of Fetuses Patient Bloodtype Patient rh Status Prepregnancy Weight lbs Domestic Partner Domestic Partner Phone Father Name Tree Faller Status 07/13/20 16 1 CLOSED Fetus Data First Name Last Name Admitted to NICU Weight (g) Sex Living Outcome Pediatric Complications Fetus ID Race Codes Race Delivery Type 3912.23 1 F Full Term 20075 Vaginal Baltazar Calculation Initial Baltazar Date Initial Exam Date Initial Exam Provider Initial Ultrasound Date Last Menstrual Period Date Ultra Sound Weeks Gestation 0 Eighteen To Twenty Week Baltazar Update Ultra Sound Date Fundal Height At Umbil Quickening Date Ultra Sound Latest Weeks Gestation Final Baltazar Confirmed By Final Baltazar Confirmed Date Final Baltazar Date Ultra Sound Latest Days Gestation 0 0 Menstrual History Last Menstrual Date Menses Monthly On Bcp Conception Prior Menses Frequency Hcg Plus Date Menarche Onset Age Delivery Information Delivery Date Delivery Type Labor Anesthesia Weeks Gestation Incision Type Labor Labor Length Hrs Delivered By Post Complications Tubal Sterilization Discharge Date Comments 1 Regional- idural Discharge Information Feeding Method Contraceptive Method Maternal HG B and HCT Levels Ob Episode Information Episode Created Date Number of Fetuses Patient Bloodtype Patient rh Status Prepregnancy Weight lbs Domestic Partner Domestic Partner Phone Father Name Tree Faller Status 07/13/20 16 1 CLOSED Fetus Data First Name Last Name Admitted to NICU Weight (g) Sex Living Outcome Pediatric Complications Fetus ID Race Codes Race Delivery Type 3713.55 7704 M Full Term 40185 Vaginal Baltazar Calculation Initial Baltazar Date Initial Exam Date Initial Exam Provider Initial Ultrasound Date Last Menstrual Period Date Ultra Sound Weeks Gestation 0 Eighteen To Twenty Week Baltazar Update Ultra Sound Date Fundal Height At Umbil Quickening Date Ultra Sound Latest Weeks Gestation Final Baltazar Confirmed By Final Baltazar Confirmed Date Final Baltazar Date Ultra Sound Latest Days Gestation 0 0 Menstrual History Last Menstrual Date Menses Monthly On Bcp Conception Prior Menses Frequency Hcg Plus Date Menarche Onset Age Delivery Information Delivery Date Delivery Type Labor Anesthesia Weeks Gestation Incision Type Labor Labor Length Hrs Delivered By Post Complications Tubal Sterilization Discharge Date Comments 2 [facility] Discharge Information Feeding Method Contraceptive Method Maternal HG B and HCT Levels Ob Episode Information Episode Created Date Number of Fetuses Patient Bloodtype Patient rh Status Prepregnancy Weight lbs Domestic Partner Domestic Partner Phone Father Name Tree Faller Status 07/13/20 16 1 CLOSED Fetus Data First Name Last Name Admitted to NICU Weight (g) Sex Living Outcome Pediatric Complications Fetus ID Race Codes Race Delivery Type 3798.83 3 F Full Term 63947 Vaginal Baltazar Calculation Initial Baltazar Date Initial Exam Date Initial Exam Provider Initial Ultrasound Date Last Menstrual Period Date Ultra Sound Weeks Gestation 0 Eighteen To Twenty Week Baltazar Update Ultra Sound Date Fundal Height At Umbil Quickening Date Ultra Sound Latest Weeks Gestation Final Baltazar Confirmed By Final Baltazar Confirmed Date Final Baltazar Date Ultra Sound Latest Days Gestation 0 0 Menstrual History Last Menstrual Date Menses Monthly On Bcp Conception Prior Menses Frequency Hcg Plus Date Menarche Onset Age Delivery Information Delivery Date Delivery Type Labor Anesthesia Weeks Gestation Incision Type Labor Labor Length Hrs Delivered By Post Complications Tubal Sterilization Discharge Date Comments 3 [facility] Discharge Information Feeding Method Contraceptive Method Maternal HG B and HCT Levels Ob Episode Information Episode Created Date Number of Fetuses Patient Bloodtype Patient rh Status Prepregnancy Weight lbs Domestic Partner Domestic Partner Phone Father Name Tree Faller Status 07/13/20 16 1 CLOSED Fetus Data First Name Last Name Admitted to NICU Weight (g) Sex Living Outcome Pediatric Complications Fetus ID Race Codes Race Delivery Type [id number] 1 F Full Term [id number] Vaginal Baltazar Calculation Initial Baltazar Date Initial Exam Date Initial Exam Provider Initial Ultrasound Date Last Menstrual Period Date Ultra Sound Weeks Gestation 0 Eighteen To Twenty Week Baltazar Update Ultra Sound Date Fundal Height At Umbil Quickening Date Ultra Sound Latest Weeks Gestation Final Balta[place] Confirmed By Final Baltazar Confirmed Date Final Baltazar Date Ultra Sound Latest Days Gestation 0 0 Menstrual History Last Menstrual Date Menses Monthly On Bcp Conception Prior Menses Frequency Hcg Plus Date Menarche Onset Age Delivery Information Delivery Date Delivery Type Labor Anesthesia Weeks Gestation Incision Type Labor Labor Length Hrs Delivered By Post Complications Tubal Sterilization Discharge Date Comments 2 [facility]- [facility] Discharge Information Feeding Method Contraceptive Method Maternal HG B and HCT Levels
--- OUTSIDE RECORDS SUMMARY | 2025-06-25 02:34 | XMS_ITS | Clinical Summary ---
Author Organization [facility] Address [address] [place] [phone] Phone Care Team Providers Care Grab Hooker Name Role Phone Unavailable Primary Care Provider Unavailabl e Social History Tobacco Use Types Packs/Day Years Used Date Smoking Tobacco: Never Assessed Comments Unknown Sex and Gender Information Value Date Recorded Sex Assigned at Not on file Legal Sex Female 1:49 PM [employer]PER[employer] Gender Identity Not on file Sexual Orientation Not on file Plan of Treatment Health Maintenance Due Date Last Done Comments DTAP/TDAP/TD VACCINES (1 - Tdap) 1972 COLORECTAL SCREENING 1998 Colorectal Cancer Screening 1998 FIT-DNA Q 3 years 1998 FIT/FOBT Q 1 year 1998 Flex Sig/CT Colonography Q 5 years 1998 PNEUMOCOCCAL VACCINE 50+ YEA RS (1 of 1 - PCV) 2003 ZOSTER VACCINE (1 of 2) 2003 OSTEOPOROSIS SCREENING 2018 BREAST CANCER SCREENING 05/09/2018 05/09/2017, 04/19 INFLUENZA VACCINE (#1) 2025 RSV VACCINE (60+ or ) (1 - 1-dose 75+ series) 2028
[2025-06-25 07:49] VITALS: BP 135/83; PULSE 92; RESP 17; TEMP 36.4; O2SAT 98; BMI 35.7
[2025-06-25] MEDS: LACTATED RINGERS 1,000 ML 150 ML IV CONT (07:57)
--- NOTE | 2025-06-25 08:03 | WPDANESEPPF ---
Anes - Initial Pre Proc Eval Procedure: Operation Date: 06/25/25 09:00 Proposed Procedures p Screening Colonoscopy - Yared Hilario MD Date/Time: 06/25/25 08:03 Surgeon: Yared Hilario MD Pre Op Diagnosis: Encounter for screening for malignant neoplasm of Patient Data Age: 70 Gender: F Height: 1.6 m Weight: 91.6 kg Last Vital Signs Temp 36.4 C 06/25/25 07:49 Pulse 92 06/25/25 07:49 Resp 17 06/25/25 07:49 BP 135/83 06/25/25 07:49 Pulse Ox 98 06/25/25 07:49 O2 Del Method Room Air 06/25/25 07:49 Allergies Allergy/AdvReac Type Severity Reaction Status Date / Time meperidine Allergy Unknown Unknown Verified 06/25/25 07:48 morphine Allergy Unknown Unknown Verified 06/25/25 07:48 Home Medications ?Medication ?Instructions ?Recorded ?Confirmed ?Type calcium carbonate (Calcium 600) 600 mg PO DAILY 03/30/20 06/25/25 History citalopram 20 mg tablet 20 mg PO DAILY 03/30/20 06/25/25 History hydrocodone 5 mg-acetaminophen 325 1 tablet PO Q6H PRN pain #14 tabs 03/30/20 06/17/25 Rx mg tablet lisinopril 10 mg tablet 10 mg PO DAILY 03/30/20 06/25/25 History vit D3-vit [id number] 5,000 PO DAILY 03/30/20 History rosuvastatin 40 mg tablet 40 mg PO DAILY 06/17/25 06/25/25 History Patient hx anesthesia problems: none Family hx anesthesia problems: none Results Review: All pre-operative results and documents have been reviewed as part of the pre-operative evaluation. [facility] [place] Past Medical History Medical History Hyperlipidemia History of depression History of diabetes mellitus History of hypertension Family History Family History Grandparent Carcinoma of colon Sibling Family history of malignant neoplasm of breast in first degree relative Mother Family history of malignant neoplasm Social History Social History Smoking status: Never smoker Alcohol intake: never Substance use: never Substance use type: does not use Living arrangements: with family Gender identity (if verbalized by the patient): Female Spiritual care concerns: No Anes - Eval Final PreProcedure Day of Procedure 06/25/25 08:03 Patient weight: obese Heart: regular rate and rhythm Lungs: clear to auscultation Airway: Mallampati scale class II Neurological: alert and oriented Last oral intake: >/= 8 hours ASA classification: III Emergent: no Anesthetic plan: proceed Anesthesia type and monitoring: general GIVS and standard monitoring Results Review: All pre-operative results and documents have been reviewed as part of the pre-operative evaluation. Informed Consent: The patient's anesthetic plan and its attendant risks and benefits were discussed with the patient/family/POA. Questions were solicited and answers provided to the satisfaction of the patient/family/POA.
--- NOTE | 2025-06-25 08:47 | PM.IMHP ---
H&P: HPI History of Present Illness Date/Time: 06/25/25 08:47 Chief Complaint: Screening colonoscopy Narrative: This is the patient's 2nd colonoscopy, her previous colonoscopy was in 2012.. There are no GI symptoms and there is no family history of colorectal cancer. Review of Systems Review of Systems: All systems reviewed & are unremarkable except as noted in HPI and below PMFSH Past Medical History Medical History Hyperlipidemia History of depression History of diabetes mellitus History of hypertension Family History Family History Grandparent Carcinoma of colon Sibling Family history of malignant neoplasm of breast in first degree relative Mother Family history of malignant neoplasm Social History Social History Smoking status: Never smoker Alcohol intake: never Substance use: never Substance use type: does not use Living arrangements: with family Gender identity (if verbalized by the patient): Female Spiritual care concerns: No Meds Home Medications and Allergies Home Medications ?Medication ?Instructions ?Recorded ?Confirmed ?Type calcium carbonate (Calcium 600) 600 mg PO DAILY 03/30/20 06/25/25 History citalopram 20 mg tablet 20 mg PO DAILY 03/30/20 06/25/25 History hydrocodone 5 mg-acetaminophen 325 1 tablet PO Q6H PRN pain #14 tabs 03/30/20 06/17/25 Rx mg tablet lisinopril 10 mg tablet 10 mg PO DAILY 03/30/20 06/25/25 History vit D3-vit [id number] 5,000 PO DAILY 03/30/20 History rosuvastatin 40 mg tablet 40 mg PO DAILY 06/17/25 06/25/25 History Allergies Allergy/AdvReac Type Severity Reaction Status Date / Time meperidine Allergy Unknown Unknown Verified 06/25/25 07:48 morphine Allergy Unknown Unknown Verified 06/25/25 07:48 Vital Signs Vital Signs - 24 hr 06/25/25 07:49 Temperature 97.6 F Pulse Rate 92 Respiratory Rate 17 Blood Pressure 135/83 Pulse Oximetry 98 Oxygen Delivery Room Air Exam Const: General: cooperative and healthy appearing Resp: Effort & Inspection: normal respiratory effort and able to speak in complete sentences Auscultation: clear to auscultation bilaterally Cardio: Rate: regular rate Rhythm: regular rhythm GI: Inspection: normal to inspection GI Palp: No No hepatosplenomegaly present Auscultation: normal bowel sounds Rectal Exam: deferred Skin: General skin exam: normal color Psych: Appearance: grossly normal Mental Status: mental status grossly normal Assessment and Plan Assessment and plan (1) Encounter for screening colonoscopy: Code(s): Z12.11 - Encounter for screening for malignant neoplasm of colon Status: Acute Assessment and Plan: The patient is deemed a good candidate for the procedure. Consent signed. Will proceed.
[2025-06-25 09:11] VITALS: BP 164/97; PULSE 76; RESP 20; O2SAT 99
[2025-06-25 09:21] VITALS: BP 152/80; PULSE 79; RESP 21; O2SAT 98
[2025-06-25 09:31] VITALS: BP 153/91; PULSE 76; RESP 19; O2SAT 99
== END 2025-06-25 09:41 | disposition home or self-care (01) ==
PROVIDERS: PCP Student in an Organized Health Care Education/Training Program; Referring Provider Student in an Organized Health Care Education/Training Program; Visit Provider Internal Medicine Gastroenterology
PROC: 0DJD8ZZ Inspection of Lower Intestinal Tract, Via Natural or Artificial Opening Endoscopic (ICD-10-PCS; CPT 45378; principal; 2025-06-25 09:00)
DX: Z12.11 Encounter for screening for malignant neoplasm of colon (principal); K57.30 Diverticulosis of large intestine without perforation or abscess without bleeding; E78.5 Hyperlipidemia, unspecified; E11.9 Type 2 diabetes mellitus without complications; I10 Essential (primary) hypertension; F32.A Depression, unspecified; E66.9 Obesity, unspecified; Z68.35 Body mass index [BMI] 35.0-35.9, adult; Z79.891 Long term (current) use of opiate analgesic; Z80.0 Family history of malignant neoplasm of digestive organs; Z80.3 Family history of malignant neoplasm of breast
CPT/HCPCS: G0105; J2704; J7120